=== PATIENT | male | born 1960 | race Caucasian/White ===

== ENCOUNTER → 2018-06-15 | Outpatient (CLI) | payer OTHER ==
[2018-06-15 11:31] LABS: Basophils # (A) 0.1 k/uL (0-0.2); Basophils % (A) 2 %; Eosinophils % (A) 1 %; HCT 45.4 % (39.0-53.0); HGB 14.9 gm/dL (13.0-17.5); Lymphocytes # (A) 1.3 k/uL (1.0-4.8); Lymphocytes % (A) 26 %; MCHC 32.9 g/dL (31.0-37.0); MCV 94.2 fL (80.0-100.0); Mean Platelet Volume 6.5; Monocytes # (A) 0.4 k/uL (0-1.0); Monocytes % (A) 7 %; Neutrophils # (A) 3.2 k/uL (1.3-7.7); Neutrophils % (A) 62 %; Platelet Count 214 k/uL (150-450); RBC 4.82 m/uL (4.30-5.90); RDW 12.5 % (11.5-15.5); WBC 5.2 k/uL (3.8-10.6)
[2018-06-15 16:32] LABS: Albumin 4.5 g/dL (3.80-4.90); Albumin/Globulin Ratio 2.25 (1.20-2.10); Anion Gap 7.8 mmol/L (4.00-12.00); Calcium 9.2 mg/dL (8.7-10.3); Carbon Dioxide 28.2 mmol/L (21.6-31.8); LDL Cholesterol,Calculated 115.2 mg/dL (0.0-131.0); Magnesium 1.9 mg/dL (1.5-2.4); Phosphorus 3.6 mg/dL (2.4-5.1); Potassium 4.7 mmol/L (3.5-5.5); Total Bilirubin 0.6 mg/dL (0.3-1.2); Total Protein 6.5 g/dL (6.2-8.2); VLDL Calculation 27.8 mg/dL (5.00-40.00)
[2018-06-15 16:40] LABS: PSA Annual Screen 0.7 ng/mL (0.0-4.0)
[2018-06-15 17:40] LABS: Hepatitis A Antibody IgM Non-Reactive (Non-Reactive); Hepatitis B Core IgM Non-Reactive (Non-Reactive)
== END | disposition home or self-care (01) ==
LOC: LABWHC1 10:26
PROVIDERS: ATTEND Internal Medicine
DX: Z00.00 Encounter for general adult medical examination without abnormal findings (principal); M13.0 Polyarthritis, unspecified; Z11.59 Encounter for screening for other viral diseases; Z79.899 Other long term (current) drug therapy
CPT/HCPCS: 80061; 80053; 80074; 84443; 83735; 84100; 85025; 36415; G0103